=== PATIENT | female | born 1990 | race African-American/Black ===

== ENCOUNTER 2016-09-14 15:21 | Emergency (ER) | payer OTHER, SELFPAY ==
[2016-09-14 15:34] VITALS: PULSE 85
[2016-09-14] MEDS ORDERED: TYLENOL 325 MG PO ONE (15:39)
[2016-09-14] MEDS ORDERED: TYLENOL 325 MG ONE (15:41)
--- NOTE | 2016-09-14 16:08 | ERPHSYRPT ---
- History of Present Illness Time Seen by Provider: 09/14/16 15:39 Source: patient Patient Subjective Stated Complaint: pt states she fell on right knee this afternoon. pt c/o pain to right knee. Triage Nursing Assessment: pt pink, warm, dry, arrived by private car. pedal pulse strong, no bruising or deformity noted. Physician History: CC: right knee Hx: Pt states slipped on a patch of ice this AM in her driveway and landed on right knee. She has pain in the right knee. Moderate. Worse with movement. Allergic to NSAIDS. No local family doctor. States not . Allergies/Adverse Reactions: droperidol [From Inapsine] Allergy (Mild, Verified 09/14/16 15:34) stroke like symptoms ketorolac tromethamine [From Toradol] Allergy (Verified 09/14/16 15:34) stroke like symptoms naproxen Allergy (Verified 09/14/16 15:34) stroke like symptoms Home Medications: Promethazine HCl 25 mg [Phenergan 25 mg] 25 mg PO TID PRN 03/11/16 [ History] Hx Tetanus, Diphtheria Vaccination/Date Given: Yes (up to date) Hx Influenza Vaccination/Date Given: Yes Hx Pneumococcal Vaccination/Date Given: No Immunizations Up to Date: Yes - Review of Systems Constitutional: No Fever Musculoskeletal: Joint Pain (right knee), No Back Pain, No Neck Pain Skin: No Rash Neurological: No Focal Weakness, No Headache, No Parasthesia - Past Medical History Pertinent Past Medical History: Yes Neurological History: No Pertinent History ENT History: No Pertinent History Cardiac History: Other Respiratory History: Asthma Endocrine Medical History: No Pertinent History Musculoskeletal History: No Pertinent History GI Medical History: Hepatitis, Pancreatitis, Other History: No Pertinent History Psycho-Social History: Anxiety Female Reproductive Disorders: Pelvic Inflammatory Disease Other Medical History: Hepatitis C - Past Surgical History Past Surgical History: Yes Neuro Surgical History: No Pertinent History Cardiac: No Pertinent History Respiratory: No Pertinent History Gastrointestinal: Cholecystectomy Genitourinary: No Pertinent History Musculoskeletal: No Pertinent History Female Surgical History: No Pertinent History Other Surgical History: colonoscopy - Social History Smoking Status: Current every day smoker How long have you smoked: 11 Exposure to second hand smoke: No Alcohol Use: None Drug Use: none Patient Lives Alone: No Significant Family History: no pertinent family hx - Female History Hx Last Menstrual Period: end aug 2016 Hx Now: No - Nursing Vital Signs Nursing Vital Signs: Initial Vital Signs Temperature 97.2 F Temperature Source Oral Pulse Rate 85 Respiratory Rate 18 Blood Pressure [Right Arm] 117/65 Pain Intensity 9 - Physical Exam General Appearance: alert Neck Exam: non-tender, supple Cardiovascular/Respiratory Exam: regular rate/rhythm Hips Exam: right: non-tender Legs Exam: bilateral leg: non-tender, normal inspection Knees Exam: right knee: bone tenderness (no swelling or erythema), left knee: non-tender, bilateral knee: normal inspection Ankle Exam: bilateral ankle: non-tender, normal inspection Foot Exam: bilateral foot: non-tender, normal inspection Neuro/Tendon Exam: normal sensation, normal motor functions Mental Status Exam: alert, oriented x 3, cooperative Skin Exam: warm, dry SpO2 Interpretation: normal SpO2: 95 Oxygen Delivery: Room Air - Course Nursing assessment & vital signs reviewed: Yes - Radiology Exams right knee X-ray Interpretation: Reviewed by me, Negative Ordered Tests: Active Orders 24 hr Category Date Time Status Anastacio Bandage Application -[facility] STAT Care 09/14/16 15:39 Active Cold Application STAT Care 09/14/16 15:39 Active KNEE (1 OR 2 VIEW) Stat Exams 09/14/16 15:39 Taken Medication Summary Discontinued Medications Generic Name Dose Route Start Last Admin Trade Name Barry PRN Reason Stop Dose Admin Acetaminophen 650 mg 09/14/16 15:39 09/14/16 15:43 Tylenol 325 Mg PO 09/14/16 15:40 650 mg STAT ONE Administration Acetaminophen Confirm 09/14/16 15:41 Tylenol 325 Mg Administered 09/14/16 15:42 Dose 650 mg .ROUTE .STK-MED ONE - Progress Progress Note: 09/14/16 16:18 Anastacio wrap applied. Symptom Rx advised. Counseled pt/family regarding: diagnosis, need for follow-up, rad results - Departure Time of Disposition: 16:19 Departure Disposition: Home Clinical Impression: Contusion of right knee Qualifiers: Encounter type: initial encounter Qualified Code(s): S80.01XA - Contusion of right knee, initial encounter Condition: Stable Critical Care Time: No Referrals: DOCTOR,NO FAMILY [Primary Care Provider] - Instructions: Knee Sprain Additional Instructions: SPRAINS/STRAINS/CONTUSIONS 1. Rest the affected area as much as possible for the next few days. 2. Apply ice to the affected area for 20-30 minutes at a time, several times a day. 3. If you receive an elastic wrap, wear it only while awake for comfort and support. Re-wrap the elastic wrap if it feels too tight or too loose. 4. If swelling is present, elevate the affected part above the level of the heart for at least 2 to 3 days. 5. Use splints, slings, or crutches as instructed. 6. Watch for severe swelling, coldness, numbness, and discoloration of the fingers and toes. See your family physician or return to the emergency department if any of these are noted. Tylenol as directed for pain. Ice packs. Anastacio wrap for comfort.
[2016-09-14 16:27] VITALS: BP 122/57; O2SAT 97
--- NOTE | 2016-09-14 16:52 | XRAY ---
Indication: Pain following fall. Comparison: None AP/lateral right knee obtained. No bone, articular, or soft tissue abnormalities.
== END 2016-09-14 16:27 | disposition home or self-care (01) ==
LOC: ED 15:21
DX: S80.01XA Contusion of right knee, initial encounter (principal); W00.0XXA Fall on same level due to ice and snow, initial encounter; M25.561 Pain in right knee
CPT/HCPCS: 73560; 99282; A9270-GY

== ENCOUNTER → 2016-11-10 | Emergency (ER) | payer SELFPAY ==
[2013-03-14 10:29] VITALS: BP 111/85
== END ==
LOC: ED 19:59
DX: Z53.9 Procedure and treatment not carried out, unspecified reason (principal)

== ENCOUNTER 2016-12-09 12:34 | Emergency (ER) | payer OTHER ==
--- NOTE | 2016-12-09 13:36 | ERPHSYRPT ---
- History of Present Illness Time Seen by Provider: 12/09/16 13:30 Historian: patient Exam Limitations: no limitations Patient Subjective Stated Complaint: here for abd pain to right lower quad for 6 days now.pt has chronic abd pain. nausea, no vomiting, Triage Nursing Assessment: pt alert, resp easy, skin w/d. no edema, moves all ext well, abd tender to touch Physician History: Pt. with Hep C and presents with abdominal pain. Contracted Hep c by sharing needles. Pt. with previous abdominal pain for past 5 days. States epigastric pain, crampy, localized, constant assoc. with nausea, but not vomiting. Pt. has chronic diarrhea. Denies any fever, chills, frequency or dysuria. States decrease appetite/intake. Had cholecystectomy in 05/19. No cough, sinus congestion/rhinorrhea. Timing/Duration: day(s) (5) Activities at Onset: none Quality: cramping Abdominal Pain Onset Location: epigastric Pain Radiation: no radiation Severity of Pain-Max: moderate Severity of Pain-Current: moderate Modifying Factors: Improves With: analgesics (Ibuprofen with minimal relief), eating (no affect) Associated Symptoms: No back, No fever/chills, No shortness of breath Previous symptoms: same symptoms as today Allergies/Adverse Reactions: droperidol [From Inapsine] Allergy (Mild, Verified 09/14/16 15:34) stroke like symptoms ketorolac tromethamine [From Toradol] Allergy (Verified 09/14/16 15:34) stroke like symptoms naproxen Allergy (Verified 09/14/16 15:34) stroke like symptoms Home Medications: Promethazine HCl 25 mg [Phenergan 25 mg] 25 mg PO TID PRN 03/11/16 [ History] Hx Tetanus, Diphtheria Vaccination/Date Given: Yes Hx Influenza Vaccination/Date Given: No Hx Pneumococcal Vaccination/Date Given: No Immunizations Up to Date: Yes - Review of Systems Constitutional: No Fever, No Chills, No Weakness Eyes: No Symptoms Ears, Nose, & Throat: No Symptoms Respiratory: No Cough, No Dyspnea Cardiac: No Chest Pain, No Edema, No Syncope Abdominal/Gastrointestinal: Abdominal Pain, Nausea, Diarrhea (chronic), No Vomiting Genitourinary Symptoms: No Dysuria Musculoskeletal: No Back Pain, No Neck Pain Skin: No Rash Neurological: No Dizziness, No Focal Weakness, No Sensory Changes Psychological: No Symptoms Endocrine: No Symptoms All Other Systems: Reviewed and Negative - Past Medical History Pertinent Past Medical History: Yes Neurological History: No Pertinent History ENT History: No Pertinent History Cardiac History: Other Respiratory History: Asthma Endocrine Medical History: No Pertinent History Musculoskeletal History: No Pertinent History GI Medical History: Hepatitis, Pancreatitis, Other History: No Pertinent History Psycho-Social History: Anxiety Female Reproductive Disorders: Pelvic Inflammatory Disease Other Medical History: Hepatitis C - Past Surgical History Past Surgical History: Yes Neuro Surgical History: No Pertinent History Cardiac: No Pertinent History Respiratory: No Pertinent History Gastrointestinal: Cholecystectomy Genitourinary: No Pertinent History Musculoskeletal: No Pertinent History Female Surgical History: No Pertinent History Other Surgical History: colonoscopy - Social History Smoking Status: Current every day smoker How long have you smoked: 11 Exposure to second hand smoke: Yes Alcohol Use: None Drug Use: none Patient Lives Alone: No Significant Family History: no pertinent family hx - Female History Hx Last Menstrual Period: 2 weeks ago Hx Now: No - Nursing Vital Signs Nursing Vital Signs: Initial Vital Signs Temperature 97.7 F Temperature Source Oral Pulse Rate 74 Respiratory Rate 16 Blood Pressure [Right Arm] 119/74 Pain Intensity 5 - Physical Exam General Appearance: no apparent distress, alert Eye Exam: PERRL/EOMI, eyes nml inspection Ears, Nose, Throat Exam: normal ENT inspection, pharynx normal, moist mucous membranes Neck Exam: normal inspection, non-tender, supple, full range of motion Respiratory Exam: normal breath sounds, lungs clear, No respiratory distress Cardiovascular Exam: regular rate/rhythm, normal heart sounds Gastrointestinal/Abdomen Exam: soft, normal bowel sounds, tenderness (mild tenderness to epigastric area), No distention, No mass, No guarding, No rebound , No hernia Back Exam: normal inspection, normal range of motion, No CVA tenderness, No vertebral tenderness Extremity Exam: normal inspection, normal range of motion, pelvis stable Neurologic Exam: alert, oriented x 3, cooperative, normal mood/affect, nml cerebellar function, sensation nml, No motor deficits Skin Exam: normal color, warm, dry SpO2: 100 Oxygen Delivery: Room Air Ordered Tests: Active Orders 24 hr Category Date Time Status Clean Catch Urine Specimen STAT Care 12/09/16 13:42 Active IV Insertion STAT Care 12/09/16 13:42 Active OBSTR/ACUTE ABDOMEN SERIES Stat Exams 12/09/16 13:43 Completed AMYLASE Stat Lab 12/09/16 14:10 Completed CBC W DIFF Stat Lab 12/09/16 14:10 Completed CMP Stat Lab 12/09/16 14:10 Completed HCG,QUALITATIVE URINE Stat Lab 12/09/16 14:58 Completed LIPASE Stat Lab 12/09/16 14:10 Completed UA W/ MICROSCOPIC Stat Lab 12/09/16 13:45 Completed Urine Triage Profile Stat Lab 12/09/16 13:50 Completed Medication Summary Discontinued Medications Generic Name Dose Route Start Last Admin Trade Name Freq PRN Reason Stop Dose Admin Sodium Chloride 1,000 mls @ 999 mls/hr 12/09/16 13:42 12/09/16 13:54 Sodium Chloride 0.9% 1000 Ml IV 12/09/16 14:42 999 mls/hr .Q1H1M STA Administration Sodium Chloride Confirm 12/09/16 13:50 Sodium Chloride 0.9% 1000 Ml Administered 12/09/16 13:51 Dose 1,000 mls @ ud .ROUTE .STK-MED ONE Pantoprazole Sodium 40 mg 12/09/16 13:42 12/09/16 13:54 Protonix 40 Mg Iv IV 12/09/16 13:43 40 mg STAT ONE Administration Pantoprazole Sodium Confirm 12/09/16 13:50 Protonix 40 Mg Iv Administered 12/09/16 13:51 Dose 40 mg IV .STK-MED ONE Promethazine HCl 12.5 mg 12/09/16 13:42 12/09/16 13:54 Phenergan 25 Mg Inj IV 12/09/16 13:43 12.5 mg STAT ONE Administration Promethazine HCl Confirm 12/09/16 13:50 Phenergan 25 Mg Inj Administered 12/09/16 13:51 Dose 25 mg .ROUTE .STK-MED ONE Lab/Rad Data: Laboratory Result Diagrams 12/09/16 14:10 12/09/16 14:10 Laboratory Results 12/09/16 12/09/16 12/09/16 Range/Units 14:58 14:10 14:10 WBC 11.3 H (4.0-10.5) K/mm3 RBC 4.60 (4.1-5.4) M/mm3 Hgb 14.0 (12.0-16.0) gm/dl Hct 42.2 (35-47) % MCV 91.7 (78-100) fl MCH 30.4 (26-32) pg MCHC 33.2 (32-36) g/dl RDW 12.7 (11.5-14.0) % Plt Count 339 (150-450) K/mm3 MPV 10.1 H (6-9.5) fl Gran % 62.5 (36.0-66.0) % Lymphocytes % 26.0 (24.0-44.0) % Monocytes % 7.6 (0.0-12.0) % Eosinophils % 3.5 (0.00-5.0) % Basophils % 0.4 (0.0-0.4) % Basophils # 0.04 (0-0.4) Sodium 138 (136-145) mEq/L Potassium 3.5 (3.5-5.1) mEq/L Chloride 103 (98-107) mEq/L Carbon Dioxide 25.2 (21-32) mEq/L Anion Gap 13.2 (5-15) MEQ/L BUN 13 (9-20) mg/dL Creatinine 0.70 (0.55-1.30) mg/dl Estimated GFR > 60 ML/MIN Glucose 85 (70-110) MG/DL Calcium 8.9 (8.5-10.1) mg/dL Total Bilirubin 0.80 (0.2-1.0) mg/dL AST 41 H (15-37) U/L ALT 101 H (12-78) U/L Alkaline Phosphatase 59 (46-116) U/L Serum Total Protein 8.2 (6.4-8.2) gm/dL Albumin 3.7 (3.4-5.0) g/dL Amylase 28 (25-115) U/L Lipase 70 L (73-393) U/L Ur Collection Type Urine Color (YELLOW) Urine Appearance (CLEAR) Urine pH (5-6) Ur Specific [place] (1.005-1.025) Urine Protein (Negative) Urine Glucose (UA) (NEGATIVE) mg/dL Urine Ketones (NEGATIVE) Urine Nitrite (NEGATIVE) Urine Bilirubin (NEGATIVE) Urine Urobilinogen (0-1) mg/dL Urine WBC (Auto) (NEGATIVE) Urine RBC (Auto) (0-5) Alfredo/ul Urine Microscopic RBC (0-2) /HPF Ur Epithelial Cells (FEW) /HPF Urine Bacteria (NEGATIVE) /HPF Urine Mucus (NEGATIVE) /HPF Urine HCG, Qual NEGATIVE (Negative) Urine Opiates Level (NEGATIVE) Ur Methadone (NEGATIVE) Urine Barbiturates (NEGATIVE) Ur Phencyclidine (PCP) (NEGATIVE) Urine Amphetamine (NEGATIVE) U Benzodiazepine Level (NEGATIVE) Urine Cocaine (NEGATIVE) Urine Marijuana (THC) (NEGATIVE) Specimen Received 12/09/16 12/09/16 Range/Units 13:50 13:45 WBC (4.0-10.5) K/mm3 RBC (4.1-5.4) M/mm3 Hgb (12.0-16.0) gm/dl Hct (35-47) % MCV (78-100) fl MCH (26-32) pg MCHC (32-36) g/dl RDW (11.5-14.0) % Plt Count (150-450) K/mm3 MPV (6-9.5) fl Gran % (36.0-66.0) % Lymphocytes % (24.0-44.0) % Monocytes % (0.0-12.0) % Eosinophils % (0.00-5.0) % Basophils % (0.0-0.4) % Basophils # (0-0.4) Sodium (136-145) mEq/L Potassium (3.5-5.1) mEq/L Chloride (98-107) mEq/L Carbon Dioxide (21-32) mEq/L Anion Gap (5-15) MEQ/L BUN (9-20) mg/dL Creatinine (0.55-1.30) mg/dl Estimated GFR ML/MIN Glucose (70-110) MG/DL Calcium (8.5-10.1) mg/dL Total Bilirubin (0.2-1.0) mg/dL AST (15-37) U/L ALT (12-78) U/L Alkaline Phosphatase (46-116) U/L Serum Total Protein (6.4-8.2) gm/dL Albumin (3.4-5.0) g/dL Amylase (25-115) U/L Lipase (73-393) U/L Ur Collection Type VOID Urine Color DARK YELLOW (YELLOW) Urine Appearance SLIGHTLY CLOUDY (CLEAR) Urine pH 5.5 (5-6) Ur Specific [place] 1.020 (1.005-1.025) Urine Protein NEGATIVE (Negative) Urine Glucose (UA) NEGATIVE (NEGATIVE) mg/dL Urine Ketones NEGATIVE (NEGATIVE) Urine Nitrite NEGATIVE (NEGATIVE) Urine Bilirubin NEGATIVE (NEGATIVE) Urine Urobilinogen 0.2 (0-1) mg/dL Urine WBC (Auto) NEGATIVE (NEGATIVE) Urine RBC (Auto) TRACE-INTACT (0-5) Alfredo/ul Urine Microscopic RBC 0-2 (0-2) /HPF Ur Epithelial Cells FEW (FEW) /HPF Urine Bacteria FEW (NEGATIVE) /HPF Urine Mucus MODERATE (NEGATIVE) /HPF Urine HCG, Qual (Negative) Urine Opiates Level NEG. (NEGATIVE) Ur Methadone NEG. (NEGATIVE) Urine Barbiturates NEG. (NEGATIVE) Ur Phencyclidine (PCP) NEG. (NEGATIVE) Urine Amphetamine POS. (NEGATIVE) U Benzodiazepine Level POS. (NEGATIVE) Urine Cocaine NEG. (NEGATIVE) Urine Marijuana (THC) POS. (NEGATIVE) Specimen Received 12/09/16 1345 - Progress Progress: improved Progress Note: 12/09/16 15:20 Pt. given IVF's/Protonix/Phenergan which did seem to improve symptoms 12/09/16 15:20 Labs essentially normal. UDS: +amphet/bzd/thc Counseled pt/family regarding: lab results, diagnosis, rad results - Departure Time of Disposition: 15:21 Departure Disposition: Home Clinical Impression: Abdominal pain Condition: Stable Critical Care Time: No Instructions: Abdominal Pain-Adult Additional Instructions: RX: Zofran Clear liquids diet, no greasy or fried foods Return for any problems.
[2016-12-09] MEDS ORDERED: Sodium Chloride 0.9% 1000 ML 1,000 ML IV STA (13:42)
[2016-12-09] MEDS ORDERED: Phenergan 25 MG INJ IV ONE (13:42)
[2016-12-09] MEDS ORDERED: PROTONIX 40 MG IV IV ONE (13:50)
[2016-12-09] MEDS ORDERED: Phenergan 25 MG INJ ONE (13:50)
[2016-12-09] MEDS ORDERED: Sodium Chloride 0.9% 1000 ML 1,000 ML ONE (13:50)
[2016-12-09] MEDS: PROTONIX 40 MG IV IV ONE (13:54)
[2016-12-09 13:55] LABS: COMPLETE URINE MICROSCOPIC? YES; Collection Type VOID; Ph 5.5 (5-6)
[2016-12-09 14:01] LABS: ADD URINE CULTURE? NO (NO); Bacteria FEW /HPF (NEGATIVE); Epithelial Cells FEW /HPF (FEW); Mucus MODERATE /HPF (NEGATIVE)
[2016-12-09 14:19] LABS: BASOPHIL % 0.4 % (0.0-0.4); Eosinophil % 3.5 % (0.00-5.0); Granulocytes % 62.5 % (36.0-66.0); Mean Cell Volume 91.7 fl (78-100); Mean Corpuscular Hemoglobin 30.4 pg (26-32); Mean Platelet Volume 10.1 fl (6-9.5); Monocytes % 7.6 % (0.0-12.0); Platelet Count 339 K/mm3 (150-450); Red Cell Distribution Width 12.7 % (11.5-14.0); White Blood Count 11.3 K/mm3 (4.0-10.5)
--- NOTE | 2016-12-09 14:39 | XRAY ---
Indication: Mid abdominal pain. Hepatitis C. Acute pancreatitis. Comparison: May 20, 2015. 2 views of the abdomen again nonacute and nonobstructed with previous cholecystectomy. Solid organs and osseous structures unremarkable. Single frontal chest again demonstrates normal heart, lungs, and bony thorax. Impression: Stable negative abdomen and normal one view chest.
[2016-12-09 14:57] LABS: ALBUMIN 3.7 g/dL (3.4-5.0); ALKALINE PHOSPHATASE 59 U/L (46-116); ANION GAP 13.2 MEQ/L (5-15); BLOOD UREA NITROGEN 13 mg/dL (9-20); CHLORIDE 103 mEq/L (98-107); Carbon Dioxide 25.2 mEq/L (21-32); Glucose 85 MG/DL (70-110); LIPASE 70 U/L (73-393); Potassium 3.5 mEq/L (3.5-5.1); SGOT/AST 41 U/L (15-37); SGPT/ALT 101 U/L (12-78); SODIUM 138 mEq/L (136-145); Total Protein 8.2 gm/dL (6.4-8.2)
[2016-12-09 15:33] VITALS: BP 97/68; PULSE 72; O2SAT 98
== END 2016-12-09 15:33 | disposition home or self-care (01) ==
LOC: ED 12:34
DX: R10.31 Right lower quadrant pain (principal); R11.0 Nausea; B19.20 Unspecified viral hepatitis C without hepatic coma
CPT/HCPCS: 36000; 36415; 74022; 80053; 80307; 81000; 82150; 83690; 84703; 85025; 96360; 96361; 96374; 96375; 99284; J2550